=== PATIENT | female | born 1990 | race Caucasian/White ===

== ENCOUNTER 2016-05-20 21:21 | Emergency (ER) | payer MEDICAID ==
--- NOTE | 2016-05-20 21:29 | ED Physician Chart ---
Chief Complaint/HPI - Patient Information Date Seen:: 05/20/16 Time Seen:: 21:28 Chief Complaint:: nausea History of Present Illness:: 25-year-old female complains of acute, constant, moderate, nausea 4 days. Has associated episodes of dry heaving. Symptoms seem worse after eating. Was seen at another local ER on Monday. Was prescribed Zofran which was working but seems to has lost its effectiveness. Allergies:: Allergies Allergy/AdvReac Type Severity Reaction Status Date / Time MDX No Known Allergies - Nka Allergy Verified 09/24/12 16:05 [No Known Allergies - Nka] Historian:: Patient Review:: Nurse's Note Reviewed Review of Systems - Review of Systems Other: Complete system review otherwise unremarkable except as noted in HPI. Past Medical History - Past Medical History Past Medical History: No significant medical hx Family History: None Social History: Non Smoker, No Alcohol, Illicit Drug Use (marijuana) Surgical History: None Psychiatricy History: None Medication: Reviewed Family Medical History - Family Member Mother History Unknown: Yes Physical Exam - Physical Examination Other:: INITIAL VITAL SIGNS: Reviewed by me GENERAL: Alert and interactive. No acute distress HEAD: Head is normocephalic and atraumatic EYES: EOMI. . No scleral icterus. No conjunctival injection ENT: Moist mucous membranes. NECK: Supple. No masses. Full range of motion RESPIRATORY: No tachypnea. Clear breath sounds bilaterally. No wheezing, rales, or rhonchi CV: Regular rate and rhythm. No murmurs, rubs, or gallops ABDOMEN: Soft, non-distended, slight generalized tenderness to palpation. No guarding. No rebound. No masses. EXTREMITIES: No deformity. No cyanosis. No edema. SKIN: Warm and dry. No obvious rashes. NEUROLOGIC: Alert and oriented. Face is symmetric. Speech is normal. Moves all extremities equally. Motor and sensory distally intact. Labs/Radiology/EKG Results - Lab Results Results: Lab Results 05/20/16 05/20/16 05/20/16 Range/Units 22:05 22:05 22:16 WBC 10.8 (4.8-10.8) Th/cmm RBC 5.23 H (3.80-5.10) Mil/cmm Hgb 14.7 (11.7-15.5) gm/dL Hct 44.2 (35.0-45.0) % MCV 84.6 (81-100) fl MCH 28.2 (27.0-31.0) pg MCHC Differential 33.3 (28.0-36.0) pg RDW 12.5 (11.5-20.0) % Plt Count 260 (150-400) Th/cmm MPV 8.1 fl Neutrophils % 82.3 H (40.0-80.0) % Lymphocytes % 11.4 L (20.0-50.0) % Monocytes % 6.1 (2.0-10.0) % Eosinophils % 0.2 (0.0-5.0) % Basophils % 0.0 (0.0-2.0) % Sodium (136-145) mEq/L Potassium (3.5-5.1) mEq/L Chloride (98-107) mEq/L Carbon Dioxide (21.0-31.0) mEq/L Anion Gap (7.0-16.0) BUN (7-25) mg/dL Creatinine (0.6-1.2) mg/dL Est GFR ( Amer) (>90) ml/min Est GFR (Non-Af Amer) ml/min BUN/Creatinine Ratio Glucose (70-105) mg/dL Calcium (8.6-10.3) mg/dL Total Bilirubin (0.3-1.0) mg/dL AST (13-39) U/L ALT (7-52) U/L Alkaline Phosphatase (34-104) U/L Total Protein (6.0-8.3) gm/dL Albumin (3.7-5.3) gm/dL Globulin gm/dL Albumin/Globulin Ratio (1.0-1.8) Amylase (29-103) U/L Lipase (11-82) U/L Urine Source CLEAN C Urine Color YELLOW Urine Clarity HAZY (CLEAR) Urine pH 6.0 Ur Specific [place] 1.020 (1.005-1.030) Urine Protein 30 H (NEGATIVE) mg/dL Urine Glucose (UA) NEGATIVE (NEGATIVE) mg/dL Urine Ketones >=80 H (NEGATIVE) mg/dL Urine Blood TRACE (NEGATIVE) Urine Nitrate NEGATIVE (NEGATIVE) Urine Bilirubin MODERATE H (NEGATIVE) Urine Urobilinogen 2.0 (0.2 - 1.0) E.U./dL Ur Leukocyte Esterase TRACE H (NEGATIVE) Urine RBC 0-2 (0-5) /hpf Urine WBC 0-2 (0-5) /hpf Ur Epithelial Cells MODERATE (FEW) /lpf Urine Bacteria NONE SEEN (NONE SEEN) /hpf Urine Test NEGATIVE 05/20/16 Range/Units 22:16 WBC (4.8-10.8) Th/cmm RBC (3.80-5.10) Mil/cmm Hgb (11.7-15.5) gm/dL Hct (35.0-45.0) % MCV (81-100) fl MCH (27.0-31.0) pg MCHC Differential (28.0-36.0) pg RDW (11.5-20.0) % Plt Count (150-400) Th/cmm MPV fl Neutrophils % (40.0-80.0) % Lymphocytes % (20.0-50.0) % Monocytes % (2.0-10.0) % Eosinophils % (0.0-5.0) % Basophils % (0.0-2.0) % Sodium 136 (136-145) mEq/L Potassium 3.0 L (3.5-5.1) mEq/L Chloride 103 (98-107) mEq/L Carbon Dioxide 25.0 (21.0-31.0) mEq/L Anion Gap 11.0 (7.0-16.0) BUN 15 (7-25) mg/dL Creatinine 0.8 (0.6-1.2) mg/dL Est GFR ( Amer) > 60.0 (>90) ml/min Est GFR (Non-Af Amer) > 60.0 ml/min BUN/Creatinine Ratio 18.8 Glucose 110 H (70-105) mg/dL Calcium 9.4 (8.6-10.3) mg/dL Total Bilirubin 0.5 (0.3-1.0) mg/dL AST 26 (13-39) U/L ALT 25 (7-52) U/L Alkaline Phosphatase 49 (34-104) U/L Total Protein 7.8 (6.0-8.3) gm/dL Albumin 4.7 (3.7-5.3) gm/dL Globulin 3.1 gm/dL Albumin/Globulin Ratio 1.5 (1.0-1.8) Amylase 41 (29-103) U/L Lipase 8 L (11-82) U/L Urine Source Urine Color Urine Clarity (CLEAR) Urine pH Ur Specific [place] (1.005-1.030) Urine Protein (NEGATIVE) mg/dL Urine Glucose (UA) (NEGATIVE) mg/dL Urine Ketones (NEGATIVE) mg/dL Urine Blood (NEGATIVE) Urine Nitrate (NEGATIVE) Urine Bilirubin (NEGATIVE) Urine Urobilinogen (0.2 - 1.0) E.U./dL Ur Leukocyte Esterase (NEGATIVE) Urine RBC (0-5) /hpf Urine WBC (0-5) /hpf Ur Epithelial Cells (FEW) /lpf Urine Bacteria (NONE SEEN) /hpf Urine Test - Radiology Results Results: CT abdomen and pelvis without contrast preliminary report per radiology No acute disease ED Septic Shock - . Is Septic Shock (SBP<90, OR Lactate>4 mmol\L) present?: No Reassessment (Disposition) - Reassessment Reassessment:: The patient's blood pressure was elevated (>120/80) but appears stable without evidence of hypertensive emergency or urgency. The patient was counseled about the risks hypertension urged to pursue outpatient monitoring and therapy within a week with her primary care physician. Patient appears to be having an episode of cyclic nausea and vomiting. She admits that she's had symptoms in the past that she is a frequent marijuana user. No acute findings on imaging or labs. She was hypokalemic. We replaced the potassium. Recommend continuing Zofran 8 mg every 8 hours as needed for nausea. Follow-up PCP 1-2 days. May require GI consult. Discussed all findings in detail with the patient. Patient understands and agrees the plan. Reassessment Condition:: Improved - Diagnosis Diagnosis:: Cyclic vomiting syndrome Marijuana abuse Elevated blood pressure without the diagnosis of hypertension - Aftercare/Follow up Instructions Medication Prescribed:: Zofran - Patient Disposition Discharge/Transfer:: Home Time:: 00:14 Condition at Disposition:: Improved ED Discharge Plan - Patient Disposition Admit/Discharge/Transfer: PT DISCHARGED HOME Condition at Disposition: Improved Instructions: Cyclic Vomiting Syndrome
[2016-05-20] MEDS ORDERED: Maalox 30 mL Cup PO STA (21:47)
[2016-05-20] MEDS ORDERED: Donnatal Liq 5 ML UDC PO STA (21:47)
[2016-05-20 22:21] LABS: % EOSINOPHILS 0.2 % (0.0-5.0); % LYMPHOCYTES 11.4 % (20.0-50.0); % MONOCYTES 6.1 % (2.0-10.0); % NEUTROPHILS 82.3 % (40.0-80.0); HEMATOCRIT 44.2 % (35.0-45.0); HEMOGLOBIN 14.7 gm/dL (11.7-15.5); MEAN CELL VOLUME 84.6 fl (81-100); MEAN CORPUSCULAR HEMOGLOBIN 28.2 pg (27.0-31.0); MEAN CORPUSCULAR HGB CONC 33.3 pg (28.0-36.0); MEAN PLATELET VOLUME 8.1 fl; NEUTROPHILE ABSOLUTE 8.9 Th/cmm (1.8-8.0); PLATELET COUNT 260 Th/cmm (150-400); RED BLOOD COUNT 5.23 Mil/cmm (3.80-5.10); RED CELL DISTRIBUTION WIDTH 12.5 % (11.5-20.0); WHITE BLOOD COUNT 10.8 Th/cmm (4.8-10.8)
[2016-05-20 22:35] LABS: ALB/GLOB RATIO 1.5 (1.0-1.8); ALKALINE PHOSPHATASE 49 U/L (34-104); AMYLASE SERUM 41 U/L (29-103); BILIRUBIN,TOTAL 0.5 mg/dL (0.3-1.0); BUN - UREA NITROGEN 15 mg/dL (7-25); BUN/CREATININE RATIO 18.8; CALCIUM SERUM 9.4 mg/dL (8.6-10.3); CHLORIDE 103 mEq/L (98-107); CREATININE - SERUM 0.8 mg/dL (0.6-1.2); GLUCOSE 110 mg/dL (70-105); LIPASE 8 U/L (11-82); SGOT 26 U/L (13-39); SGPT/ALT 25 U/L (7-52); SODIUM SERUM 136 mEq/L (136-145)
[2016-05-20] MEDS ORDERED: Potassium Chloride 20 mEq ER Tab PO ONE (22:46)
[2016-05-20 22:49] LABS: URINE BILIRUBIN MODERATE (NEGATIVE); URINE BLOOD TRACE (NEGATIVE); URINE COLOR YELLOW; URINE GLUCOSE (UA) NEGATIVE (NEGATIVE); URINE KETONE >=80 mg/dL (NEGATIVE); URINE PROTEIN 30 mg/dL (NEGATIVE)
[2016-05-20 22:50] LABS: URINE BACTERIA NONE SEEN /hpf (NONE SEEN); URINE EPITHELIAL CELLS MODERATE /lpf (FEW); URINE RBC 0-2 /hpf (0-5); URINE WBC 0-2 /hpf (0-5)
[2016-05-20] MEDS ORDERED: Maalox 30 mL Cup ONE (23:16)
[2016-05-20] MEDS ORDERED: Donnatal Liq 5 ML UDC ONE (23:16)
--- NOTE | 2016-05-21 10:13 | Diagnostic Imaging Report ---
CT scan abdomen and pelvis without intravenous contrast HISTORY: Pain Total DLP equals 620 CTDI equals 12.1 Axial sections were obtained from the xiphoid process down to the pubic symphysis. The liver exhibits a normal size and contour. No focal lesions. The spleen appears normal. No abnormality seen in the region of the pancreas. No focal renal lesions. No hydronephrosis. The exam of the pelvis and states hypodensities within the adnexal regions probably related to ovarian cystic changes. No definite abnormality seen in the region of the appendix. No other abnormal masses or abnormal fluid collections. IMPRESSION: 1. Hypodensity within the adnexal regions probably related to ovarian cystic changes. If necessary, an ultrasound exam would provide for further assessment.
== END 2016-05-21 00:30 | disposition home or self-care (01) ==
LOC: ER 21:21
DX: G43.A0 Cyclical vomiting, in migraine, not intractable (principal); F12.10 Cannabis abuse, uncomplicated; R03.0 Elevated blood-pressure reading, without diagnosis of hypertension
CPT/HCPCS: 99285; 96372; 74176; 36415; 85025; 81001; 82150; 81025; 83690; 80053; J2405